=== PATIENT | male | born 1925 | race Caucasian/White ===

== ENCOUNTER → 2017-03-09 | Day surgery (SDC) | payer MEDICARE ==
--- NOTE | 2017-03-08 17:29 | MH ---
cc: AINSLEY EDUARDO DATE OF ADMISSION 03/09/2017 ADMITTING DIAGNOSIS An 89-year-old gentleman with hoarseness for vocal cord biopsy. PAST MEDICAL HISTORY Unremarkable. PAST SURGICAL HISTORY Unremarkable. HISTORY Notable for previous laryngeal carcinoma. REVIEW OF SYSTEMS Unremarkable. FAMILY HISTORY AND SOCIAL HISTORY Unremarkable. PHYSICAL EXAMINATION GENERAL: Well-appearing patient, no acute distress noted. HEENT: Exam reveals left vocal cord immobile with cyst or nodule on the cord. A few other nodules on the right cord. LUNGS: Clear. CARDIOVASCULAR: Regular rate and rhythm. ABDOMEN: Soft and nontender. EXTREMITIES: Without cyanosis, clubbing or edema. NEUROLOGIC: Alert, oriented, nonfocal neurologic exam. IMPRESSION The patient with significant laryngeal lesion for direct laryngoscopy biopsy. The patient's family instructed in the method of surgery and possible complication to include anesthetic complications such as cardiac difficulty, pulmonary difficulty, stroke, or even . Surgical complications bleeding, infection, risk of transfusion, airway loss, tracheostomy. The patient appeared to agree, accept and understand above-mentioned risks and benefits. In addition no guarantees or warranties regarding outcome were given. We will therefore proceed with surgery. MD DEONDRE Ovalles/ALEX /5:02 PM /5:25 PM
[~2017-03-09] VITALS: Ht 190.5 cm; Wt 93.0 kg
[~2017-03-09] MED LIST: ACETAMINOPHEN/HYDROcodone 325 MG/5 MG TAB PO PRN; ATEN1TAB71 PO; CHLORHEXIDINE GLUCONATE 2 % 1 PACK (2 CLOTHS) TOPICAL PRN; DO NOT ADM ANY ANTICOAGULANT DRUGS PRN; INSULIN HUMAN REGULAR 1,000 UNITS/10 ML VIAL SQ PRN; LACTATED RINGER'S 1000 ML IV PRN; METOPROLOL TARTRATE 25 MG TAB PO PRN; MORPHINE SULFATE 4 MG/ML INJ IV PUSH PRN; ONDANSETRON HCL 4 MG/2 ML VIAL IV PUSH ONE; ONDANSETRON HCL 4 MG/2 ML VIAL IV PUSH PRN; POVIDONE IODINE 5% (ANTISEPSIS KIT) 4 APPLICATIONS EACH NARE PRN; PROPOFOL 200 MG/20 ML AMP IV ONE; SIMV40TA PO; SODIUM CHLORID 0.9% 500 ML IV PRN; UROCTAB2 PO; ePHEDrine/NS 25 MG/5 ML SYR IV ONE
[2017-03-09 06:57] VITALS: BP 147/68; PULSE 55; RESP 18; TEMP 97.1; O2SAT 96
[2017-03-09 07:09] LABS: BASOPHIL % 0.4 % (0.0-2.0); EOSINOPHIL # 0.2 TH/MM3 (0-0.4); EOSINOPHIL % 2.8 % (0.0-4.0); HEMATOCRIT 40.4 % (39.0-51.0); HEMO FLAGS DIFF FINAL; LYMPH % 23.3 % (9.0-44.0); LYMPHOCYTE # 1.5 TH/MM3 (1.0-4.8); MEAN CELL VOLUME 90.7 FL (80.0-100.0); MEAN CORPUSCULAR HEMOGLOBIN 30.2 PG (27.0-34.0); MEAN CORPUSCULAR HGB CONC 33.2 % (32.0-36.0); MONO % 11.6 % (0.0-8.0); NEUT % 61.9 % (16.0-70.0); PLATELET COUNT 100 TH/MM3 (150-450); RED BLOOD COUNT 4.45 MIL/MM3 (4.50-5.90); RED CELL DISTRIBUTION WIDTH 13.3 % (11.6-17.2); WHITE BLOOD COUNT 6.5 TH/MM3 (4.0-11.0)
[2017-03-09 09:44] VITALS: BP 136/74; PULSE 63; RESP 18; TEMP 97.6; O2SAT 97
--- NOTE | 2017-03-09 19:41 | EKG ---
Date Performed: 03/09/2017 Time Performed: 06:49:46 PTAGE: 89 years EKG: SINUS BRADYCARDIA MODERATE ST DEPRESSION Possible Left ventricular hypertrophy Occasional a bbearant conduction of supraventricular beats with accelerated AV stacy conduction. Ventricular preex citation is not excluded, but this is probably just abbearant conduction reflecting slow infra-his re covery Compared to prior tracing no significant change, except for the abbearantly conducted beats AB NORMAL ECG PREVIOUS TRACING : 02/19/2003 14.00 DOCTOR: Karen Nguyen Interpretating Date/Time 03/09/2017 19:40:05
--- NOTE | 2017-03-10 11:41 | MP ---
cc: AINSLEY EDUARDO DATE OF SURGERY: 03/09/2017 PREOPERATIVE DIAGNOSIS Hoarseness, vocal cord lesion. POSTOPERATIVE DIAGNOSIS Hoarseness, vocal cord lesion. PROCEDURE Microlaryngoscopy, biopsy. ANESTHESIA General. ESTIMATED BLOOD LOSS Minimal. COMPLICATIONS No complications. OPERATING SURGEON Dr. Eduardo OPERATION The patient was prepped and draped in the usual fashion. An anterior commissure scope was passed per orally after protecting the upper teeth with a mouth guard. Once this was achieved a left-sided vocal cord nodule was noted and using the suction this was inadvertently suctioned from the cord. The underlying cord was unremarkable. The nodule was recovered from the suction tubing. No other lesions were noted in the endolarynx or the piriform sinuses or the postcricoid. The scope was removed along with the mouth guard. The patient tolerated the procedure well. MD DEONDRE Ovalles/[place] /8:57 AM /11:40 AM
== END | disposition home or self-care (01) ==
LOC: HSDC 05:58
PROVIDERS: ATTEND Specialist
DX: C32.0 Malignant neoplasm of glottis (principal); R05 Cough; R09.82 Postnasal drip; J32.8 Other chronic sinusitis; R51 Headache; R94.31 Abnormal electrocardiogram [ECG] [EKG]; Z85.21 Personal history of malignant neoplasm of larynx; Z01.818 Encounter for other preprocedural examination; Z01.810 Encounter for preprocedural cardiovascular examination
CPT/HCPCS: 00320; 31536; 85025; 88305; 93005; J2405; J3010